=== PATIENT | male | born 1960 | race Caucasian/White ===

== ENCOUNTER 2019-01-13 16:38 | Emergency (ER) | payer OTHER, SELFPAY ==
[2019-01-13 16:41] VITALS: BP 112/73; PULSE 73; RESP 16; TEMP 36.4; O2SAT 96
--- NOTE | 2019-01-13 17:49 | ED.DCSUM_ITS ---
- ER Visit Summary Date of Service: 01/13/19 Chief Complaint: Left thumb laceration History of Present Illness: The patient is a 58 M who presents with left thumb laceration that occurred today. Patient states he cut his thumb approximately 5 hours prior to arrival. Patient states the bleeding is been persistent. Patient states his tetanus is within the last 10 years. Patient denies any paresthesias or weakness. Patient states he applied a dressing but the bleeding would continue if he flexed his thumb. Patient made a homemade splint and applied this as well. Patient states the bleeding stopped after this. Physical Examination: Vital signs are stable. Patient is afebrile. Patient is in no acute distress. Musculoskeletal exam shows a 1 cm full-thickness linear laceration over the dorsal radial aspect of the distal phalanx of the left thumb near the IP joint. There is moderate gapping of the wound margins. There is some mild bleeding noted. Sensation was intact to light touch in all digits. Capillary refill was less than 2 seconds in all digits. Radial pulses are equal bilaterally. Emergency Department Course and Treatment: The wound was cleaned and irrigated with copious amounts normal saline. The left thumb laceration was anesthetized 1% plain lidocaine locally. The wound was closed with 2 simple interrupted #5-0 nylon sutures under sterile technique. Bacitracin dressing was applied. Patient tolerated the procedure well. Patient was instructed to follow-up with his primary care physician in 5 to 7 days. Patient understood and was agreeable with the plan. All questions were answered. Disposition: Discharge home Impression: Left thumb laceration This note was generated with [employer] dictation software. It may contain incorrect words, spelling, and punctuation that were not noted in review of the chart prior to signing ED Disposition - Plan for ED Patient: Disposition: Home or Assisted Living Diagnosis: Laceration of left thumb without foreign body without damage to nail Instructions: ED Laceration Hand Referrals: Dave Allen DO [Primary Care Provider] - 7 Days for suture removal
[2019-01-13] MEDS: BACITRACIN 15 GM Tube 1 APPLIC TOPICAL (18:20)
[2019-01-13 20:10] VITALS: RESP 18
== END 2019-01-13 20:10 | disposition home or self-care (01) ==
PROVIDERS: Emergency Provider Emergency Medicine; Family Provider Preventive Medicine Occupational Medicine; PCP Preventive Medicine Occupational Medicine
DX: S61.012A Laceration without foreign body of left thumb without damage to nail, initial encounter (principal); W45.8XXA Other foreign body or object entering through skin, initial encounter; Y93.9 Activity, unspecified; Y92.9 Unspecified place or not applicable; Y99.9 Unspecified external cause status
CPT/HCPCS: 12001; 99283

== ENCOUNTER 2019-10-18 04:26 | Observation (INO) | payer OTHER, SELFPAY ==
[2019-10-18] VITALS (12 sets, daily range): BP systolic 106–142; BP diastolic 57–91; PULSE 52–74; RESP 14–18; TEMP 36.4–36.8; O2SAT 96–100; BMI 27.3; BMI 26.1
--- NOTE | 2019-10-18 04:31 | EKG12_ITS ---
Test Reason : CP Blood Pressure : / mmHG Vent. Rate : 056 BPM Atrial Rate : 056 BPM P-R Int : 138 ms QRS Dur : 152 ms QT Int : 456 ms P-R-T Axes : 040 000 102 degrees QTc Int : 440 ms Sinus bradycardia Left bundle branch block Abnormal ECG Confirmed by LILLIAN DIANE, CHANG ([id number]), news assignment editor IAN MADRIGAL ([id number]) on 10/20/2019 12:55:58 PM Referred By: JESUS Confirmed By:ELISEO SNYDER MD
--- NOTE | 2019-10-18 04:31 | RAD_ITS ---
STUDY: X-RAY CHEST REASON FOR EXAM: Male, 58 years old. Chest pain. History of left bundle branch block. TECHNIQUE: AP portable chest. COMPARISON: None. FINDINGS: The lungs are clear and expanded. There is no demonstrated pleural abnormality. Normal size heart. Normal mediastinum and manpreet. Normal visualized pulmonary arteries. Normal visualized aortic arch and descending thoracic aorta. Normal visualized thoracic spine. Normal visualized ribs, clavicles, and shoulders. There is no demonstrated abnormality of the visualized soft tissue structures of the upper abdomen. RAD/Chest 1 View (Portable) IMPRESSION: Normal x-ray examination of the chest. Electronically Signed: Young Cotto MD at 4:53 EDT , Service support ,
--- NOTE | 2019-10-18 04:32 | ED.VISSUMM ---
- ER Visit Summary Date of Service: 10/18/19 Chief Complaint: Chest pain History of Present Illness: The patient is a 58 M who woke up with chest pain. It started less than an hour ago. It is a pressure in the mid upper part of his chest. He did take some aspirin as directed by 911 and his symptoms are now almost gone. Nothing makes his symptoms worse. He did feel diaphoretic. No shortness of breath nausea or vomiting. He states he did get worked up at the [facility] last week and was found to have a left bundle branch block. He had a catheterization and they are scheduling an outpatient stent on October 29. He has no other stents in his heart. No cardiac history until last week. Physical Examination: Vital signs reviewed. HEENT exam unremarkable. Heart is regular rate and rhythm without murmurs. Lungs are clear to auscultation. Abdomen is soft and nontender. Extremities reveal no edema. Peripheral pulses are equal. Skin exam normal. Neurologic exam normal. Test Results: EKG was sinus rhythm with a rate of 56. Left bundle branch block noted. No ST changes. Chest x-ray and labs are normal. Emergency Department Course and Treatment: The patient took aspirin at home. His ALLI score is 1. My concern is he keeps having these fleeting episodes of chest pressure he states that he did have a catheterization last week by him unable to find records of this at the [facility]. Nobody is answering the phone. I attempted to call multiple times as well as the speaking unit assembler. At this point I feel would be prudent to admit him here to try to get paperwork to find out this patient's catheterization. I discussed this with the hospitalist. Treatment Plan: [] Disposition: Admit Impression: Chest pain This note was generated with [employer] dictation software. It may contain incorrect words, spelling, and punctuation that were not noted in review of the chart prior to signing ED Disposition - Plan for ED Patient: Referrals: [facility] [Primary Care Provider] -
[2019-10-18 04:44] LABS: Absolute Lymphocyte Count 2.11 X10^3/uL (0.83-4.51); Absolute Neutrophil Count 2.3 X10^3/uL (2.0-7.7); Basophil# 0.01 X10^3/uL; Basophil% 0.2 % (0-1); Eosinophil# 0.42 X10^3/uL; Eosinophils% 7.7 % (0-5); Hematocrit 43.6 % (40-54); Hemoglobin 14.3 g/dL (13.0-16.5); Lymphocyte # 2.11 X10^3/ul (4.0); Lymphocyte % 38.6 % (19-41); Mean Corp Hgb Conc 32.8 g/dL (32-36); Mean Corpuscular Hgb 28.9 pg (27.0-32.0); Mean Corpuscular Volume 88.3 fL (80-94); Mean Platelet Vol. 8.8 fl (6.2-12.0); Monocyte# 0.61 X10^3/uL; Monocyte% 11.2 % (0-10); NRBC Flagged by Analyzer 0 % (0-5); Neutrophil % 42.1 % (47-70); Platelet Count 282 K/mm3 (150-450); RBC Distribution Width CV 11.3 % (11.6-14.6); RBC Distribution Width SD 36.3 fl (35.1-43.9); Red Blood Count 4.94 M/mm3 (4.6-6.2); White Blood Count 5.5 K/mm3 (4.4-11.0)
[2019-10-18 05:22] LABS: Anion Gap 5 (5-15); BUN 18 mg/dL (7-18); BUN/Creat Ratio 17.8 RATIO (10-20); Calcium,Total 8.6 mg/dL (8.5-10.1); Chloride 106 mmol/L (98-107); Creatinine, Serum 1.01 mg/dL (0.70-1.30); EST Glomerular Filtration Rate 81 mL/min (>60); Est Glom Filt Rate - Afr Amer 98 mL/min (>60); Estimated Creatinine Clearance 81.67 ml/min; Glucose 102 mg/dL (74-106); Sodium Level 141 mmol/L (136-145)
--- NOTE | 2019-10-18 05:26 | ED.RN ---
[facility], ATTEMPTED TO REACH [facility], UNABLE TO GET THROUGH TO ANYONE. RECORDING ACCESSES PERSONAL INFORMATION DATABASE
--- NOTE | 2019-10-18 06:16 | HP.PCM_ITS ---
Problem List (1) Chest pain Status: Acute Qualifiers: Chest pain type: unspecified Qualified Code(s): R07.9 - Chest pain, unspecified (2) HTN (hypertension) Status: Chronic Qualifiers: Hypertension type: essential hypertension Qualified Code(s): I10 - Essential (primary) hypertension (3) HLD (hyperlipidemia) Status: Chronic Qualifiers: Hyperlipidemia type: unspecified Qualified Code(s): E78.5 - Hyperlipidemia, unspecified (4) Former tobacco use Status: Chronic History of Present Illness Date of Admission: 10/18/19 Chief Complaint: Chest pain The patient is a 58 y/o M w/ PMHx: CAD unclear vessel, HTN, HLD with recent [facility] evaluation 1 week prior with noted new LBBB at that time with follow-up abnormal stress testing at that time with reduced EF 30% per patient report and planned upcoming 10/30/19 PCI intervention secondary to patient reported RUE catheterization with need for intervention with inguinal access with ongoing history of chest pain who presents to the [facility] ED on 10/18/19 with onset sudden more severe chest pressure, midsternal with some L sided chest radiation, awakening him from sleep at ~ 3:00 am with diaphoresis without dyspnea, nausea, emesis, rated 3/10 in severity prompting ED presentation. In the ED patient noted initially resolved chest pain and upon evaluation noted 1-2/10. ED [facility] to obtain records and was unsuccessful. Work-up in the ED included T 90.2, heart 63, BP 113/82, respiratory rate 15, 100% on room air, CBC unremarkable, BMP unremarkable, troponin less than 0.015, chest x-ray with no acute cardiopulmonary findings, EKG with SR without acute evidence of ischemia with LBBB. Past Medical History Past Medical History (Chronic Problems): Chronic Problems HTN (hypertension) (Chronic) HLD (hyperlipidemia) (Chronic) Former tobacco use (Chronic) Allergies No Known Allergies Allergy (Verified 01/13/19 16:39) Home Medications: Ambulatory Orders Medication Instructions Recorded Aspirin [Aspirin, Baby] 81 mg PO DAILY@0800 10/18/19 Atorvastatin Calcium [Lipitor] 80 mg PO QHS 10/18/19 Clopidogrel Bisulfate [Clopidogrel] 75 mg PO DAILY 10/18/19 Lisinopril [Zestril] 2.5 mg PO DAILY 10/18/19 Metoprolol Succinate 12.5 mg PO DAILY 10/18/19 Surgical History: - - Left knee arthroscopic surgery, left middle finger surgery, tonsillectomy. Psychiatric History: No pertinent psych hx Lives: Spouse/ Significant Other Smoking Status: Former smoker - Patient quit cigarette tobacco usage approximately 6 to 7 years prior to current presentation with prior to this 1/2 pack/day cigarette tobacco use. Tobacco Use: Non-smoker Alcohol: Occasional Drugs: None - *Family History Maternal History Items: High Cholesterol, Heart Disease - Patient with additionally CABG x3., Hypertension Paternal History Items: High Cholesterol, Heart Disease, Hypertension Review of Systems Constitutional: Reports: Malaise, Weakness, Fatigue. Denies: Anorexia, Chills, Fever, Weight Change HEENT: Denies: Head Aches, Sinus Congestion, Sinus Drainage Cardiovascular: Reports: Chest Pain, Chest Pressure, Chest Tightness. Denies: Light Headedness, Orthopnea, Palpitations, Syncope Respiratory: Denies: Cough, Shortness of Breath, Shortness of breath at rest, Shortness of breath upon exertion, Sputum production, Wheezing Gastrointestinal: Denies: Abdominal Pain, Nausea, Vomiting Genitourinary: Denies: Dysuria Musculoskeletal: Denies: Joint Pain, Joint Tenderness Skin: Denies: Rash, Wounds Neurological: Denies: Numbness, Tingling, Focal weakness Psychiatric: Denies: Anxiety, Depression, Homicidal Ideations, Suicidal Ideations Hematologic/ Lymphatic: Denies: Easy Bruising, Easy Bleeding VTE Information - Inpt Only VTE Present on Admission: No VTE Mechan Device Prophylaxis: SCD's VTE Pharm Prophylaxis ordered?: Yes Patient Problems: Active and Suspected Problems Chest pain (Acute) Subjective: Patient seated upright in the ED bed, mildly fatigued appearance, no acute distress, chest discomfort improving. Objective: Physical Examination: General: awake, alert, oriented x 3 and cooperative, seated upright in the ED bed, mildly fatigued appearance, notes chest discomfort improving. Skin: normal color, turgor, no icterus, cyanosis. HEENT: AT/NC, EOMI, PERRLA, MMM, no carotid bruits or JVD noted. Lungs: CTA bilaterally, moderate effort, mild decrease BL bases, no rales, ronchi or wheezing. Heart: Regular rate and rhythm; no gallop, rub audible. Abdomen: soft, NTTP, ND, normal BS, no HSM. Extremities: no cyanosis, clubbing, or edema. Neurological: patient awake, alert, oriented x 3; cognitive function intact; pupils equally reactive to light and accomodation; cranial nerves II-XII grossly normal, moving all 4 extremities, no focal deficits, strength mildly to moderate global decrease secondary to acute presentation. Psychiatric: affect appears fatigued otherwise normal, no acute evidence of depressive or anxiety feelings. - Physical Exam Vitals/I&O's: Vital Signs Temp Pulse Resp BP Pulse Ox 98.2 F 60 15 113/82 H 99 10/18/19 04:27 10/18/19 04:31 10/18/19 04:31 10/18/19 04:31 10/18/19 04:36 Oxygen Delivery Method Room Air Weight: 185 lb 10.067 oz Body Mass Index (BMI) 27.3 Laboratory Results 10/18/19 04:30: WBC 5.5, RBC 4.94, Hgb 14.3, Hct 43.6, MCV 88.3, MCH 28.9, MCHC 32.8, RDW Std Deviation 36.3, RDW Coeff of Jennifer 11.3 L, Plt Count 282, MPV 8.8, Immature Gran % (Auto) 0.200, Neut % (Auto) 42.1 L, Lymph % (Auto) 38.6, [place] % (Auto) 11.2 H, Eos % (Auto) 7.7 H, Baso % (Auto) 0.2, Absolute Neuts (auto) 2.3, Absolute Lymphs (auto) 2.11, Nucleated RBC % 0 10/18/19 04:30: Sodium 141, Potassium 4.0, Chloride 106, Carbon Dioxide 30.0, Anion Gap 5, BUN 18, Creatinine 1.01, Estim Creat Clear Calc 81.67, Est GFR (MDRD) Af Amer 98, Est GFR (MDRD) Non-Af 81, BUN/Creatinine Ratio 17.8, Glucose 102, Calcium 8.6, Troponin I < 0.015 Assessment/Plan All Active Problems Chest pain (Acute) The patient is a 58 y/o M w/ PMHx: CAD unclear vessel, HTN, HLD with recent [facility] noted abnormal stress testing and catheterization ~ 1 week prior with planned 10/30/19 PCI intervention secondary to patient reported RUE catheterization with need for intervention with inguinal access with ongoing history of chest pain who presents to the [facility] ED on 10/18/19 with onset sudden more severe chest pressure, midsternal with some L sided chest radiation, awakening him from sleep at ~ 3:00 am with diaphoresis without dyspnea, nausea, emesis, rated 3/10 in severity prompting ED presentation. 1. Chest pain with recent abnormal stress test, new onset left bundle branch block and patient reported abnormal cardiac catheterization with reduced EF: EKG in ED sinus rhythm with L bundle branch block with no acute evidence of ischemia, CXR w/ no acute cardiopulmonary findings, initial trop normal x1. Will admit to PCU, place on a monitored bed to assure no acute myocardial infarction with serial cardiac enzymes and EKGs. Will request [facility] records but given patient detailed history of new onset left bundle branch block approximately 1 week prior with abnormal stress testing follow-up with reduced EF with catheterization with planned future PCI intervention will request cardiology consultation for likely cardiac catheterization with PCI intervention. ASA, NG, morphine. 2. CAD: Recent cardiac catheterization with reportedly abnormal coronary disease with planned upcoming PCI, pending repeat catheterization per cardiology consultation discretion, continue aspirin, Plavix, metoprolol, lisinopril, statin therapy. 3. Hypertension: Continue home regimen including metoprolol, lisinopril, PRN hydralazine. 4. Hyperlipidemia: Continue home statin regimen. AM FLP. 5. Former tobacco use: Encouraged continued tobacco cessation. 6. DVT prophylaxis: SCDs, Lovenox. OBSV E&M: 13470 Initial observation care L3
--- NOTE | 2019-10-18 06:24 | EKG12_ITS ---
Test Reason : Blood Pressure : / mmHG Vent. Rate : 052 BPM Atrial Rate : 052 BPM P-R Int : 138 ms QRS Dur : 150 ms QT Int : 484 ms P-R-T Axes : 038 -07 088 degrees QTc Int : 450 ms Sinus bradycardia Left bundle branch block Abnormal ECG When compared with ECG of 18-OCT-2019 04:37, MANUAL COMPARISON REQUIRED, DATA IS UNCONFIRMED Confirmed by TARIK COMBS ([id number]), loan expeditor IAN MADRIGAL ([id number]) on 10/19/2019 7:30:59 AM Referred By: JAYDON Confirmed By:TARIK COMBS
[2019-10-18 07:12] LABS: Magnesium 1.9 mg/dL (1.6-2.6)
[2019-10-18] MEDS: 0.9% Normal Saline 1,000 ML 100 ML IV (08:02)
[2019-10-18] MEDS: Aspirin 81 MG TAB.CHEW PO (08:02)
[2019-10-18] MEDS: TICAGRELOR 90 MG TABLET 180 MG PO (08:02)
[2019-10-18] MEDS: Clopidogrel Bisulfate 75 MG Tablet PO (08:02)
[2019-10-18] MEDS: DiphenhydrAMINE 25 MG Capsule 50 MG PO (08:14)
--- NOTE | 2019-10-18 10:57 | PCM.CONS.C ---
Problem List (1) Chest pain Status: Acute Qualifiers: Chest pain type: unspecified Qualified Code(s): R07.9 - Chest pain, unspecified (2) HTN (hypertension) Status: Chronic Qualifiers: Hypertension type: essential hypertension Qualified Code(s): I10 - Essential (primary) hypertension (3) HLD (hyperlipidemia) Status: Chronic Qualifiers: Hyperlipidemia type: unspecified Qualified Code(s): E78.5 - Hyperlipidemia, unspecified (4) Former tobacco use Status: Chronic Reason for Consult Date of Consultation: 10/18/19 Reason for Consultation: Unstable angina, coronary artery disease, hypertension, hypercholesterolemia History of Present Illness: The patient is a 58 year old M, nondiabetic, former [place] in the [place], former smoker quit in 2007 after approximately [id number] smoking history, no previous CVA, with known hypertension, hypercholesterolemia, and apparently had a syncopal episode about 1 week ago possibly due to vasovagal episode. Patient was admitted to the [facility] for his syncope, was found to have a newly discovered left bundle branch block. According the patient underwent a stress test and an echocardiogram which apparently was abnormal which followed a cardiac catheterization via the radial approach last at the [facility]. According to the patient it was discovered that he had a occluded LAD with apparently collaterals perfusing it. It is uncertain whether the patient had left to left collaterals, right to left collaterals, or bridging collaterals as we do not have that report. In addition he was found to have an ejection fraction approximately 30% all per the patient. We made several attempts to contact the [facility] medical records department and request the cardiac catheterization findings, echocardiogram, and stress test findings but have not yet received those records. Patient was scheduled for an elective PCI at [facility] on 10/30/2019, however last evening he developed 3 out of 10 substernal chest pain last evening with no associated shortness of breath, nausea or vomiting. He did have diaphoresis however. Upon further history the patient states that he began developing chest pain sometime late last summer early fall with dyspnea on exertion but did not seek medical attention. He reports that he has been compliant with his aspirin, Plavix, and antihypertensive and antilipid therapy. His EKG demonstrated normal sinus rhythm with left bundle branch block, no acute changes noted. Initial troponin is negative. Subsequent troponins are pending. Past Medical History Allergies/Adverse Reactions: Allergies No Known Allergies Allergy (Verified 01/13/19 16:39) Home Medications: Ambulatory Orders Medication Instructions Recorded Aspirin [Aspirin, Baby] 81 mg PO DAILY@0800 10/18/19 Atorvastatin Calcium [Lipitor] 80 mg PO QHS 10/18/19 Clopidogrel Bisulfate [Clopidogrel] 75 mg PO DAILY 10/18/19 Lisinopril [Zestril] 2.5 mg PO DAILY 10/18/19 Metoprolol Succinate 12.5 mg PO DAILY 10/18/19 Past Medical History (Chronic Problems): Chronic Problems HTN (hypertension) (Chronic) HLD (hyperlipidemia) (Chronic) Former tobacco use (Chronic) Surgical History: - - Left knee arthroscopic surgery, left middle finger surgery, tonsillectomy. Psychiatric History: No pertinent psych hx - *Family History Maternal History Items: High Cholesterol, Heart Disease - Patient with additionally CABG x3., Hypertension Paternal History Items: High Cholesterol, Heart Disease, Hypertension Lives: Spouse/ Significant Other Smoking Status: Former smoker Tobacco Use: Cigarettes Alcohol: Occasional Drugs: None Review of Systems - Review of Systems General: Denies: Fever, Night Sweats, Fatigue Cardiovascular: Reports: Chest Discomfort, Chest Discomfort at Rest. Denies: Shortness of Breath, Orthopnea, PND, Peripheral Edema, Palpitations, Lightheadedness, Dizziness, Near Syncope, Syncope Respiratory: Denies: Cough, Sputum Production, Hemoptysis Gastrointestinal: Denies: Hematemesis, Hematochezia, Melena Genitourinary: Denies: Dysuria, Hematuria Skin: Denies: Rash Subjectve: Patient laying in bed, no acute distress. Objective: Vital Signs Temp Pulse Resp BP Pulse Ox 97.6 F L 54 L 18 113/57 L 98 10/18/19 06:30 10/18/19 08:01 10/18/19 06:30 10/18/19 08:01 10/18/19 07:04 Oxygen Delivery Method Room Air Weight: 177 lb 0.499 oz Body Mass Index (BMI) 26.1 General: Awake, Alert, Oriented x 3 HEENT: PERRL, EOMI, Sclera Non Icteric Neck: Supple, Good ROM, No Lymph Node Enlargement Lungs: Clear to auscultation Cardiovascular: Regular Rhythm, Normal S1, Normal S2, No Murmurs, No Rubs, No Gallops Vascular: No Carotid Bruits, Normal Femoral Pulses, Normal Radial Pulses, Normal Dorsalis Pedal Pulse, Normal Posterior Tibial Pulses Abdomen: Bowel Sounds Present, Soft, Non Tender, No HSM, No Organomegaly Extremities: No Cyanosis, No Clubbing, No edema Neurological: No Focal Motor or Sensory Deficit 10/18/19 04:30: WBC 5.5, RBC 4.94, Hgb 14.3, Hct 43.6, MCV 88.3, MCH 28.9, MCHC 32.8, Plt Count 282, MPV 8.8, Immature Gran % (Auto) 0.200, Neut % (Auto) 42.1 L, Lymph % (Auto) 38.6, [place] % (Auto) 11.2 H, Eos % (Auto) 7.7 H, Baso % (Auto) 0.2, Absolute Neuts (auto) 2.3, Nucleated RBC % 0 10/18/19 04:30: Sodium 141, Potassium 4.0, Chloride 106, Carbon Dioxide 30.0, Anion Gap 5, BUN 18, Creatinine 1.01, Est GFR (MDRD) Af Amer 98, Est GFR (MDRD) Non-Af 81, BUN/Creatinine Ratio 17.8, Glucose 102, Calcium 8.6, Troponin I < 0.015 10/18/19 04:30: APTT 28.0 10/18/19 06:45: Magnesium 1.9, Troponin I < 0.015 Rhythm: EKG: As above ECHO: Pending Stress Test: Cardiac Cath: PCI: CT Surgery: Holter monitor: EPS: PPM: CXR: Chest CT Scan: Assessment/Plan 1. Coronary artery disease: The patient presented about 1 week ago to [facility] with a syncopal episode and a cardiac work-up which included an echocardiogram demonstrated LV dysfunction with an EF around 30% per the patient, followed by a stress test followed by a cardiac catheterization which allegedly showed an occluded LAD with collateralization from an unknown source. We have made several attempts to contact medical records at [facility] to determine if the patient truly has a chronic totally occluded LAD or whether he has a possible channel which may benefit from percutaneous intervention. If the patient has a true chronic total occlusion of his LAD, will be unable to proceed with heart catheterization or intervention as this is out of the realm of allowable interventions here at [facility]. If we are unable to proceed with cardiac catheterization here at [facility], would recommend transfer to [facility] once a bed becomes available. Again we have tried several times to get access to the patient's medical records but have been unable to do so as of this writing. If the patient does not have a completely occluded LAD and it looks as though he may benefit from percutaneous intervention which is allowable here at [facility], we may then recommend diagnostic coronary angiogram followed by intervention here at [facility]. In the meantime he will continue baby aspirin, Plavix, full dose 1 mg/kg subcu Lovenox twice daily until the time of his catheterization, lisinopril and Toprol. I would not recommend repeat echocardiogram as he just had one last week at the [facility] and hopefully they will send us those records sometime today. In the meantime we will keep the patient n.p.o. until we hear from the [facility]. If her unable to do the catheterization today we will proceed with catheterization tomorrow assuming we find that his LAD is not a chronic total occlusion. 2. Hyperlipidemia: Continue Lipitor therapy. Recommend obtaining a fasting lipid profile for baseline. 3. Thank you very much for the opportunity to participate in the cardiac care of your patient. Consultation time took place between 9:00 and 9:30 AM. Inpatient E&M: 91401 Init Hosp L2
--- NOTE | 2019-10-18 11:16 | CASEMGMT ---
Addendum entered by Jagruti Walker 10/18/19 14:55: This RN CM received call back from iVviana at [facility] and asks if pt is willing to transfer and this RN CM notified her that pt is agreeable to transfer at this time. Viviana states that they have a bed in their PCU for pt at this time. She states that she is setting up transport for pt at this time. Viviana is provided with PCU main number at this time per her request. [phone] ext [phone]. Viviana requests that report be called to the PCU upon pt leaving [facility]. Taylor BARRETT updated on all and contact number provided to her at this time, voices understanding. Dr. Frey, Dr. Au, Spike-charge manager, and Erin-U front office secretary all updated at this time, voice understanding. This RN CM to room to inform pt/ at this time, voice understanding and gratitude at this time. Per Viviana, she will try and get transport set up to be here to [facility] around 1700 and pt/ aware of all at this time, voice understanding. Pt/ voice no further questions/concerns/needs at this time. SStaten RN CM Original Note: Per pt, he had a cath at the [facility] last week and they were unable to stent at that time. He states that he was set up to come back on 10/30/19 for the stent. Pt states that he was told that he has 100% occlusion in the vessel that needs stented. Pt states was awaken this am with 'sweating and chest pain'. [facility]. Clinicals faxed to [facility] at this time and call to [facility] to notify with all of the above. Records were obtained from the [facility] and per Dr. Au, pt has chronic LAD occlusion which we cannot fix here at [facility] and Dr. Au states pt will needs transferred. Pt is willing to transfer and the transfer center is updated about [facility] inability to place stent in chronically occluded vessel at this time, voices understanding. Per transfer center, pt is not service connected and does not have travel benefits but since the care was started there last week with the cath then that may be waived. Pt's career development consultant at transfer center [place] [phone]. This RN CM awaiting a call back from transfer center at this time. SStaten RN CM
--- NOTE | 2019-10-18 14:53 | PCM.HOSP.N ---
H[facility]ist Note [facility] known [facility] them for his chronic LAD occlusion and has been accepted for care.
--- NOTE | 2019-10-18 15:42 | DS.PCM_ITS ---
Discharge Date and Diagnosis - Problem List Patient Problems: Active and Suspected Problems Chest pain (Acute) Date of Admission: 10/18/19 Date of Discharge: 10/18/19 - Primary Discharge Diagnosis Active and Suspected Problems Chest pain (Acute) - Secondary Discharge Diagnosis Chronic Problems HTN (hypertension) (Chronic) HLD (hyperlipidemia) (Chronic) Former tobacco use (Chronic) Hospital Course and Treatment cardiology Summary of Care Provided: The patient is a 58 y/o M w/ PMHx: CAD of the LAD, HTN, HLD with [facility] prior with noted new LBBB at that time with follow-up abnormal stress testing at that time with reduced EF 30% per patient report and planned upcoming 10/30/19 PCI intervention secondary to patient reported RUE catheterization with need for intervention with inguinal access with ongoing history of chest pain who presented to the [facility] ED on 10/18/19 with onset sudden more severe chest pressure, midsternal with some L sided chest radiation, awakening him from sleep at ~ 3:00 am with diaphoresis without dyspnea, nausea, emesis, rated 3/10 in severity prompting ED presentation. In the ED patient noted initially resolved chest pain and upon evaluation noted 1-2/10. [facility] to obtain [facility] and [facility] unsuccessful. Work-up in the ED included T 90.2, heart 63, BP 113/82, respiratory rate 15, 100% on room air, CBC unremarkable, BMP unremarkable, troponin less than 0.015, chest x-ray with no acute cardiopulmonary findings, EKG with SR without acute evidence of ischemia with LBBB. [facility] did get [facility] the [facility] and the LAD lesion is chronically occluded therefore he was accepted and transferred for PCI at the [facility] as we are unable to proceed with cardiac catheterization here at [facility]. Patient Problems: Active and Suspected Problems Chest pain (Acute) - Physical Exam Vitals/I&O's: Vital Signs Temp Pulse Resp BP Pulse Ox 97.9 F 52 L 16 106/70 100 10/18/19 11:50 10/18/19 11:50 10/18/19 11:50 10/18/19 11:50 10/18/19 11:50 Oxygen Flow Rate (L/min) 2 Oxygen Delivery Method Room Air Weight: 80.3 kg Body Mass Index (BMI) 26.1 Intake and Output for Last 24 Hours 10/16/19 10/17/19 10/18/19 23:59 23:59 23:59 Intake Total 560 / 560 Balance 560 / 560 Laboratory Results 10/18/19 04:30: WBC 5.5, RBC 4.94, Hgb 14.3, Hct 43.6, MCV 88.3, MCH 28.9, MCHC 32.8, RDW Std Deviation 36.3, RDW Coeff of Jennifer 11.3 L, Plt Count 282, MPV 8.8, Immature Gran % (Auto) 0.200, Neut % (Auto) 42.1 L, Lymph % (Auto) 38.6, [place] % (Auto) 11.2 H, Eos % (Auto) 7.7 H, Baso % (Auto) 0.2, Absolute Neuts (auto) 2.3, Absolute Lymphs (auto) 2.11, Nucleated RBC % 0 10/18/19 04:30: Sodium 141, Potassium 4.0, Chloride 106, Carbon Dioxide 30.0, Anion Gap 5, BUN 18, Creatinine 1.01, Estim Creat Clear Calc 81.67, Est GFR (MDRD) Af Amer 98, Est GFR (MDRD) Non-Af 81, BUN/Creatinine Ratio 17.8, Glucose 102, Calcium 8.6, Troponin I < 0.015 10/18/19 04:30: APTT 28.0 10/18/19 06:45: Magnesium 1.9, Troponin I < 0.015 10/18/19 10:38: Troponin I < 0.015 Current Medications Acetaminophen (Tylenol) 650 mg PO Q6H PRN PRN PRN Reason: Pain Score 1-10/Temp > 100.7 F Al Hydroxide/Mg Hydroxide (Mylanta Ii) 30 ml PO Q6H PRN PRN PRN Reason: Gastric Burning Albuterol Sulfate (Ventolin Aerosols) 2.5 mg INHALATION Q2H PRN PRN PRN Reason: SOB/Wheezing Aspirin (Aspirin, Baby) 81 mg PO DAILY@0800 [facility] Last Admin: 10/18/19 08:02 Dose: 81 mg Documented by: Atorvastatin Calcium (Lipitor) 80 mg PO QHS [facility] Clopidogrel Bisulfate (Plavix) 75 mg PO DAILY [facility] Last Admin: 10/18/19 08:02 Dose: 75 mg Documented by: Enoxaparin Sodium (Lovenox) 40 mg SC DAILY [facility] Last Admin: 10/18/19 08:03 Dose: Not Given Documented by: Famotidine (Pepcid) 20 mg PO BID [facility] Last Admin: 10/18/19 08:05 Dose: Not Given Documented by: Glucagon () 1 mg IM .X1 PRN PRN Reason: Hypoglycemia Guaifenesin (Robitussin) 20 ml PO Q4H PRN PRN PRN Reason: COUGH Sodium Chloride () 1,000 mls @ 100 mls/hr IV .Q10H [facility] Last Admin: 10/18/19 08:02 Dose: 100 mls/hr Documented by: Dextrose (Dextrose 10%-Water) 250 mls @ 999 mls/hr IV .Q16M PRN; Protocol PRN Reason: HYPOGLYCEMIA Sodium Chloride () 1,000 mls @ 0 mls/hr IV .Q0M [facility] Lisinopril (Zestril) 2.5 mg PO DAILY [facility] Last Admin: 10/18/19 08:14 Dose: Not Given Documented by: Magnesium Hydroxide (Milk Of Magnesia) 30 ml PO DAILY PRN PRN PRN Reason: Constipation Melatonin (Melatonin) 3 mg PO QHS PRN PRN PRN Reason: INSOMNIA Metoprolol Succinate (Toprol Xl (Beta Shin)) 12.5 mg PO DAILY [facility] Last Admin: 10/18/19 08:01 Dose: Not Given Documented by: Morphine Sulfate () 2 mg IV Q3H PRN PRN PRN Reason: Pain Score 6-10/10 Nitroglycerin (Nitrostat) 0.4 mg SUBLINGUAL Q5M PRN PRN Reason: CARDIAC/CHEST PAIN Ondansetron HCl (Zofran) 4 mg IV Q8H PRN PRN PRN Reason: NAUSEA/VOMITING Oxycodone HCl (Oxyir) 5 mg PO Q4H PRN PRN PRN Reason: Pain Score 4-5/10 Prochlorperazine Edisylate (Compazine Iv) 5 mg IV Q4H PRN PRN PRN Reason: Breakthrough Nausea/Vomiting Psyllium Hydrophilic Mucilloid (Metamucil) 1 packet PO DAILY PRN PRN PRN Reason: Constipation Senna/Docusate Sodium (Senokot-S, Janelle-Colace) 2 tablet PO BID PRN PRN PRN Reason: Constipation Throat Lozenges (Cepacol Sore Throat Lozenge) 1 lozenge MUCOUS MEM Q2H PRN PRN PRN Reason: SORE THROAT Home Medications: Medications to take at Discharge Aspirin [Aspirin, Baby] 81 mg PO DAILY@0800 10/18/19 Atorvastatin Calcium [Lipitor] 80 mg PO QHS 10/18/19 Clopidogrel Bisulfate [Clopidogrel] 75 mg PO DAILY 10/18/19 Lisinopril [Zestril] 2.5 mg PO DAILY 10/18/19 Metoprolol Succinate 12.5 mg PO DAILY 10/18/19 Primary Care Physician: [facility] [Primary Care Provider] - Medical Necessity - Tobacco Use Smoking Status: Former smoker Tobacco Use: Cigarettes Meaningful Use Info Meaningful Use Diagnoses (Choose all that apply): None applicable
[2019-10-18] MEDS: Famotidine 20 MG Tablet PO (21:03)
[2019-10-18] MEDS: Atorvastatin Calcium 80 MG Tablet PO (21:03)
== END 2019-10-18 21:35 ==
LOC: ED 05:29 → PCU 05:57
PROVIDERS: Admitting Provider Family Medicine; Emergency Provider Emergency Medicine; Visit Provider Internal Medicine
DX: I25.110 Atherosclerotic heart disease of native coronary artery with unstable angina pectoris (principal); I44.7 Left bundle-branch block, unspecified; R00.1 Bradycardia, unspecified; R94.31 Abnormal electrocardiogram [ECG] [EKG]; I10 Essential (primary) hypertension; E78.5 Hyperlipidemia, unspecified; Z79.899 Other long term (current) drug therapy; Z79.82 Long term (current) use of aspirin; Z79.02 Long term (current) use of antithrombotics/antiplatelets; Z87.891 Personal history of nicotine dependence; R94.39 Abnormal result of other cardiovascular function study; I25.82 Chronic total occlusion of coronary artery
CPT/HCPCS: 36415; 71045; 80048; 83735; 84484; 85025; 85730; 93005; 96360; 96361; 99218; 99251; 99285; J7030; A4216; G0378; G0463

== ENCOUNTER 2023-10-29 15:37 | Emergency (ER) | payer OTHER, SELFPAY ==
[2023-10-29 15:39] VITALS: BP 137/92; PULSE 65; RESP 18; TEMP 36.2; O2SAT 100; BMI 27.8
--- NOTE | 2023-10-29 15:48 | ED.RN ---
pt presents with chief c/o right 2nd finger turning blue and tingling after doing pistol drills. finger cold to touch with numbness and tingling
--- NOTE | 2023-10-29 16:01 | EDS_ITS ---
HPI History of Present Illness Chief Complaint: Neuro S/Sx Informant: patient Narrative Narrative: Patient states about an hour ago, he was doing pistol work with a gun, he was not firing live ammunition, he states it was in the dark, he was pulling the trigger he is right-hand dominant using his index finger, but he states he did not do anything traumatic. He did this for about 30 minutes, and stopped when he noticed his right index finger was tingling. When he got into light he noticed that it was blue. He denies any other symptoms. He presents out of concern for this potentially being a circulatory problem because he has some stents. He states he is on aspirin, does not think he is taking clopidogrel although it is on his medication list but he does not have his list or his medications with him. [facility] Medical History (Updated 10/29/23 @ 16:[address] Kings Burnham MD) CAD (coronary artery disease) HLD (hyperlipidemia) HTN (hypertension) Medical History no medical history Home Medications aspirin 81 mg chewable tablet 81 mg PO DAILY@0800 10/18/19 [History Last Taken 10/18/19 03:20] atorvastatin 80 mg tablet 80 mg PO QHS 10/18/19 [History Last Taken 10/17/19 19:00] clopidogrel 75 mg tablet 75 mg PO DAILY 10/18/19 [History Last Taken 10/17/19 06:00] lisinopril 2.5 mg tablet 2.5 mg PO DAILY 10/18/19 [History Last Taken 10/17/19 19:00] metoprolol succinate 25 mg tablet,extended release 24 hr 12.5 mg PO DAILY 10/18/19 [History Last Taken 10/17/19 06:00] Allergy/AdvReac Type Severity Reaction Status Date / Time No Known Allergies Allergy Verified 10/29/23 15:39 Surgical History History of coronary artery stent placement Social History Smoking Status: Former smoker ROS ROS ED Constitutional Constitutional ED: Denies chills or fever(s) Cardiovascular Cardiovascular: Denies chest pain or palpitations Respiratory/Chest Respiratory/Chest: Denies dyspnea Musculoskeletal Musculoskeletal: Denies extremity pain or neck pain Integumentary Reports other Details: Discoloration right index finger see HPI ; Denies Abrasions, rash or wounds Neurologic Neurologic: Reports paresthesias; Denies weakness EXAM Physical Exam Const Vital Signs: 10/29/23 15:39 Temperature 97.2 F L Temperature Source Temporal Pulse Rate 65 Respiratory Rate 18 Blood Pressure 137/92 H Blood Pressure Mean 107 Pulse Ox 100 Oxygen Delivery Method Room Air Positive well nourished and well developed General Appearance ED: well developed and NAD Neck full ROM and supple Back/Spine normal ROM and normal to inspection Extremity Extremity Narrative: Right index finger has decreased sensation to sharp on both sides of it, distal phalanx only. No other loss of sensation to other fingers to sharp or dull sen sation. There is ecchymotic/bluish discoloration to the radial and volar aspects only at the PIPJ, there is no tenderness or swelling. There is no limited range of motion of any of the joints of the finger or other fingers. There is no color abnormality beneath the nail, and it looks the same as the other nails. The fingers are all cool but it is cold outside and the patient just came into the ER, the coolness/warmth of the index finger is the same as the other fingers. He has brisk cap refill distally at the index finger same as the other digits. Neuro oriented x3 and no focal motor deficits Neuro Narrative: Partial sensory deficit both sides of the right index finger distally only see above. No other sensory or motor deficits. Sensorium / Orientation: alert Psych mental status grossly normal and thought process normal Skin no wounds Rashes: no rashes MDM MDM MDM Narrative Medical decision making narrative: As I discussed with this patient, since the blue/ecchymotic discoloration is so localized, and does not go from that area distally to the fingertip, I do not think that this has anything to do with circulation. He seems to have a digital neuropathy, may be from repetitive movements of the affected finger using his pistol. He states he did not have any significant traumatic experience, which is why I do not think he needs x-rays. I reassured him about his circulation, looks like an ecchymotic area, and this could happen with minor trauma for person to take aspirin and clopidogrel. I do not think that there is any testing indicated, and we discussed that a nerve conduction study may prove that he has a peripheral neuropathy, but there is still no specific treatment for it other than to avoid the activities that cause the problem which I discussed with him. Patient states he has some history of degenerative disc disease in his neck, I also advised him that since the paresthesias are so localized, this is not consistent with a radiculopathy which she is in agreement with. Discharge Plan Triage Chief Complaint: Neuro S/Sx ED Provider: Kings Burnham Dx/Rx/DC Orders Clinical Impression: Superficial bruising of finger, Peripheral neuropathy Instructions: Treating Peripheral Neuropathy Prescriptions: No Action atorvastatin 80 MG tablet 80 mg PO QHS clopidogrel 75 MG tablet 75 mg PO DAILY aspirin 81 MG tablet,chewable 81 mg PO DAILY@0800 metoprolol succinate 25 MG tablet extended release 24 hr 12.5 mg PO DAILY lisinopril 2.5 MG tablet 2.5 mg PO DAILY [facility] [Primary Care Provider] - 1 Week if not improving Activity Restrictions/Additional Instructions: Avoid activities that involve using the right index finger and the way that you were with the pistol. Disposition Disposition: Home, Self Care
[2023-10-29 16:17] VITALS: BP 125/74; PULSE 63; RESP 16; TEMP 36.3; O2SAT 99
== END 2023-10-29 16:18 | disposition home or self-care (01) ==
LOC: ED 16:09
PROVIDERS: Emergency Provider Emergency Medicine; Visit Provider Emergency Medicine
DX: G62.9 Polyneuropathy, unspecified (principal); S60.021A Contusion of right index finger without damage to nail, initial encounter; X58.XXXA Exposure to other specified factors, initial encounter; I25.10 Atherosclerotic heart disease of native coronary artery without angina pectoris; I10 Essential (primary) hypertension; E78.5 Hyperlipidemia, unspecified; Z95.5 Presence of coronary angioplasty implant and graft; Z79.82 Long term (current) use of aspirin; Z79.899 Other long term (current) drug therapy; Z87.891 Personal history of nicotine dependence
CPT/HCPCS: 99282